=== PATIENT | female | born 1995 | race African-American/Black ===

== ENCOUNTER 2022-03-27 12:47 | Emergency (ER) | payer MEDICAID, OTHER ==
[~2022-03-27] VITALS: Ht 167.6 cm; Wt 73.0 kg
[2022-03-27 12:50] VITALS: BP 100/54
== END 2022-03-27 14:29 | disposition home or self-care (01) ==
LOC: ER 12:47
DX: R55 Syncope and collapse (principal); E11.9 Type 2 diabetes mellitus without complications; Z79.4 Long term (current) use of insulin
CPT/HCPCS: 93005; 99283

== ENCOUNTER 2023-11-18 13:29 | Emergency (ER) | payer MEDICAID, OTHER ==
[~2023-11-18] VITALS: Ht 154.9 cm; Wt 86.0 kg
[2023-11-18 13:39] VITALS: O2SAT 100
[2023-11-18] MEDS ORDERED: NAPR-1129 MT (16:56)
[2023-11-18 17:25] VITALS: BP 120/75; PULSE 83; RESP 18; TEMP 98.2
== END 2023-11-18 17:26 | disposition home or self-care (01) ==
LOC: ER 13:29
DX: M54.50 Low back pain, unspecified (principal); E11.9 Type 2 diabetes mellitus without complications
CPT/HCPCS: 99282

== ENCOUNTER 2023-11-21 06:31 | Emergency (ER) | payer BC, OTHER ==
[~2023-11-21] VITALS: Ht 162.6 cm; Wt 85.0 kg
[~2023-11-21 06:31] MED LIST: NAPR-1129 MT
[2023-11-21 06:40] VITALS: TEMP 98.2; O2SAT 98
[2023-11-21] MEDS ORDERED: POVIDONE-IODINE 10% TOPICAL SOLN 240ML TOP ONE (08:45)
[2023-11-21] MEDS ORDERED: LIDOCAINE HCL 1% 20ML VIAL (Pyxis) INJ INFIL ONE (08:45)
[2023-11-21 09:33] VITALS: BP 108/70; PULSE 77; RESP 16
== END 2023-11-21 09:36 | disposition home or self-care (01) ==
LOC: ER 07:00
DX: L02.31 Cutaneous abscess of buttock (principal); E11.9 Type 2 diabetes mellitus without complications
CPT/HCPCS: 10060; 99282; J3490; Z7610

== ENCOUNTER 2023-11-23 06:46 | Emergency (ER) | payer BC, OTHER ==
[~2023-11-23] VITALS: Ht 172.7 cm; Wt 67.0 kg
[2023-11-23 07:08] VITALS: O2SAT 100
[2023-11-23 07:39] VITALS: BP 127/75; PULSE 89; RESP 16; TEMP 98
== END 2023-11-23 07:40 | disposition home or self-care (01) ==
LOC: ER 06:46
DX: L05.01 Pilonidal cyst with abscess (principal); E11.9 Type 2 diabetes mellitus without complications
CPT/HCPCS: 99281